=== PATIENT | male | born 2000 | race Caucasian/White ===

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

== ENCOUNTER 2020-11-22 18:22 | Emergency (ER) | payer MEDICAID | END 2020-11-22 22:11 | disposition home or self-care (01) | LOC: ER1 18:22 | DX: R51.9 Headache, unspecified (principal) | CPT/HCPCS: 99283 ==

== ENCOUNTER 2020-12-02 05:48 | Emergency (ER) | payer SELFPAY ==
[2020-12-02 07:12] LABS: HEMOGLOBIN 16.6 gm/dl (14.0-17.5); RED BLOOD COUNT 5.28 M/UL (4.20-5.50)
[2020-12-02 07:37] LABS: BUN/CREATININE RATIO 18 (0-10)
[2020-12-02] MEDS ORDERED: ZOFRAN4 MG PO (08:47)
== END 2020-12-02 09:10 | disposition home or self-care (01) ==
LOC: ER1 05:48
PROVIDERS: Family Medicine; Physician Assistant
DX: R42 Dizziness and giddiness (principal); R11.2 Nausea with vomiting, unspecified
CPT/HCPCS: 80053; 80307; 81001; 82550; 82553; 83874; 84484; 85025; 93005; 99284; J7030